=== PATIENT | female | born 1965 | race Two or more races ===

== ENCOUNTER 2024-05-20 15:20 | Emergency (ER) | payer OTHER, SELFPAY ==
[2024-05-20 15:38] VITALS: BP 141/102
[2024-05-20 17:32] VITALS: BP 130/68
--- NOTE | 2024-05-20 18:12 | ED.GENMED ---
History of Present Illness
General
Chief Complaint: Catheter/Tube Problem
Source: patient and family
Exam Limitations: none
Time Seen by Provider: 05/20/24 17:59
History of Present Illness
History of Present Illness:
Patient with a long history of Rios catheter for 10 years. Changed in April routinely in [place]. Feel like it is blocked today. Urinating around the catheter. Some lower abdominal pressure. This has happened previously. No fever chills flank
back pain or other complaints
Past History
Past History
ED Past Medical History: NIDDM and Other (Chronic catheter)
Review of Systems
Review of Systems
All Other Systems: Not applicable
Constitutional: Denies fever or chills
Phy Exam
Physical Exam
Physical Exam:
GENERAL: Alert and oriented in no apparent distress. Ambulating without different
EYE: Orbits normal.
NECK: Supple
CARDIAC: Regular rate and rhythm without any obvious murmurs.
LUNGS: Clear breath sounds,normal
ABDOMEN: Soft, minimal suprapubic tenderness. No rebound or guarding no mass or hernia.
: Rios with no urine in the catheter tube however a small amount in the bag.
NEUROLOGICAL: Alert and oriented , grossly non-focal
SKIN: Warm and dry
PSYCH: Normal and appropriate interaction..
Course
Orders/Labs/Results
Orders:
Orders
05/20/24 18:44
Acetaminophen [Tylenol] 650 mg PO NOW STA
Vital Signs
Initial and Last Documented VS:
Initial Vital Signs
Temp Pulse Resp BP Pulse Ox
98.5 F 75 18 141/102 98
05/20/24 15:38 05/20/24 15:38 05/20/24 15:38 05/20/24 15:38 05/20/24 15:38
Last Documented Vital Signs
Temp Pulse Resp BP Pulse Ox
98.5 F 79 18 130/68 99
05/20/24 15:38 05/20/24 17:32 05/20/24 17:32 05/20/24 17:32 05/20/24 17:32
MDM/Problems Addressed
Differential Diagnosis Includes:
Nothing to suspect infectious issue. Will place Rios.
*Critical Care Note
Total Time (30-74mins, 75-104mins- exclusive of procedures): Not Applicable
Update Note
Update Note:
Rios replaced without issues. Patient still has some vague discomfort but this is typical after being replaced. Urine looks clear. Discussed treating for infection although not describing any systemic infectious issues. Will hold on antibiotics
for now
ED Attending Note
-
Portions of this chart may have been created with voice recognition software.� Occasional wrong word or��sound alike� substitutions may have occurred due to the inherent limitations of voice recognition software.
Discharge Plan
Departure
Patient Disposition: Home (Routine Discharge)
Date of Disposition: 05/20/24
Time of Disposition: 18:59
Patient with high blood pressure during this ER visit?: Yes
Discharge Problem:
Blocked Rios catheter
Instructions: How to Care for Your Rios Catheter, BLOOD PRESSURE
Referrals:
Lewis Campbell MD [Active] - Next open appointment
Activity Restrictions/Additional Instructions:
Return with any concerns including fever chills increasing lower abdominal pressure or pain etc.
Interventions
Interventions:
*Risk Screen - Suicide Last Done: 05/20/24 15:38
*General Assessment Last Done: 05/20/24 15:38
*ED- Fall Risk Assessment Last Done: 05/20/24 15:38
*ED COVID-19 Vaccine History Last Done: 05/20/24 15:38
LI-Iooqrg-Vgeshbpwmh Assessment Last Done: 05/20/24 18:54
ED-Female Genitourinary Assessment Last Done: 05/20/24 18:54
Discharge Date and Time
Print Language: SYRIAN
[2024-05-20 18:58] VITALS: BP 136/64
[2024-05-20] MEDS: TYLENOL 650 MG PO (18:58)
[2024-05-20 19:00] VITALS: BMI 29.6
== END 2024-05-20 19:30 | disposition home or self-care (01) ==
LOC: EMR 15:20
PROVIDERS: EMERGENCY PHYSICIAN Emergency Medicine
DX: T83.091A Other mechanical complication of indwelling urethral catheter, initial encounter (principal); Y84.6 Urinary catheterization as the cause of abnormal reaction of the patient, or of later complication, without mention of misadventure at the time of the procedure; R10.30 Lower abdominal pain, unspecified; R03.0 Elevated blood-pressure reading, without diagnosis of hypertension; E11.9 Type 2 diabetes mellitus without complications
CPT/HCPCS: 99284; 51702